=== PATIENT | male | born 1935 | race Caucasian/White ===

== ENCOUNTER → 2018-01-23 | Outpatient (CLI) | payer MEDICARE, OTHER ==
[2018-01-23 09:05] LABS: ANION GAP 5 mmol/L (7-16); BUN 11 mg/dL (7-18); CALCIUM 8.8 mg/dL (8.5-10.1); CHLORIDE 105 mmol/L (98-107); CHOLESTEROL 108 mg/dL (<200); CO2 31 mmol/L (21-32); CREATININE 1.1 mg/dL (0.6-1.3); GLUCOSE 93 mg/dL (70-99); HDL CHOLESTEROL 52 mg/dL (>40); LDL CHOLESTEROL 42 mg/dL (<100); SGOT 22 U/L (15-37); SGPT 32 U/L (30-65); SODIUM 141 mmol/L (136-145); TC:HDL 2.1 Ratio (Not establshd); TRIGLYCERIDE 70 mg/dL (<150); VLDL 14 mg/dL (<40)
[2018-01-23 09:07] LABS: SERUM ASSESSMENT Clear
== END ==
LOC: M.LAB 08:23
PROVIDERS: Internal Medicine Cardiovascular Disease
DX: Z95.5 Presence of coronary angioplasty implant and graft (principal); I10 Essential (primary) hypertension; I25.10 Atherosclerotic heart disease of native coronary artery without angina pectoris; E78.5 Hyperlipidemia, unspecified

== ENCOUNTER → 2019-01-22 | Outpatient (CLI) | payer MEDICARE, BC | LOC: M.ULTRA 09:58 | DX: M79.89 Other specified soft tissue disorders (principal) ==

== ENCOUNTER → 2020-02-05 | Outpatient (CLI) | payer MEDICARE, BC ==
--- NOTE | 2020-02-05 18:08 | EXE ---
[place] [address] STRESS ECHOCARDIOGRAM Name: JOLENE RAMOS Room: [facility]#: [id number] Admission: 02/05/20 Attend Phys: Tyrell Weiss MD Discharge: Date of : 31 Date of Service: 02/05/20 1806 Report #: [id number] THIS REPORT FOR: cc: Tomi Yi Steve T. DO Liston, Michael J. MD [facility] ~ APPROVED REPORT Study performed: 02/05/2020 15:21:58 Exam: Dobutamine Stress Echo Indication: CAD Patient Location: Out-Patient Stress Nurse: Renae Jha RN Supervising Physician: Julio Vo MD Ht: 5 ft 7 in HR: 61 bpm BP: 161/76 mmHg Medical History Cardiac Risk Factors: Hyperlipidemia, HTN, FHX of CAD, Tobacco History (Former) Procedure The patient underwent a Pharmacological Stress Test using Dobutamine. Blood pressure, heart rate, and EKG were monitored. An Echocardiogram was performed by communications engineering technician in four stages in quad fashion. At peak stress, four selected images were obtained and placed side by side with resting images for comparison. Stress Test Details Stress Test: Pharmacological Stress Test using Dobutamine. HR Resting HR: 61 bpm Max Heart Rate (APMHR): 134 bpm Max HR Achieved: 119 bpm Target HR (85% APMHR): 113 bpm % of APMHR: 88 Recovery HR: 81 bpm HR response to stress: Normal HR response to stress BP Resting BP: 161/76 mmHg Max BP: 193/69 mmHg Recovery BP: 155/81 [place] [address] STRESS ECHOCARDIOGRAM Name: JOLENE RAMOS Room: [facility]#: [id number] Admission: 02/05/20 Attend Phys: Tyrell Weiss MD Discharge: Date of : 31 Date of Service: 02/05/20 1806 Report #: [id number] BP response to stress: Normal blood pressure response to stress. ECG Resting ECG: Sinus Rhythm Stress ECG: Sinus Tachycardia ST Change: None Arrhythmia: None Recovery ECG: Sinus Rhythm Recovery ST Change: None Recovery Arrhythmia: None Clinical Reason for Termination: Completed protocol The patient tolerated dobutamine infusion without significant cardiac symptoms. Stress ECG Conclusion The baseline 12-lead EKG show sinus rhythm without significant ST segment or T wave abnormality. EKGs obtained during and post dobutamine infusion show sinus rhythm and sinus tachycardia with no significant ST segment or T wave changes when compared to baseline. There were no stress-induced arrhythmias. Pre-Stress Echo The resting Echocardiogram showed normal left ventricular contractility with an estimated Ejection Fraction of about 55-60%. The resting echocardiogram demonstrated normal wall motion in all wall segments. Post-Stress Echo The stress Echocardiogram showed normal left ventricular contractility with an estimated Ejection Fraction of about >70%. Compared to rest, there were no stress-induced wall motion abnormalities. Normal augmentation of wall motion in all segments on post stress images. Clinical No clinical or ECG evidence for ischemia. Conclusion Clinical Response: Non-ischemic Stress ECG Response: Non-ischemic Stress Echo Images: [place] [address] STRESS ECHOCARDIOGRAM Name: REBEKAHJOLENE Room: [facility]#: [id number] Admission: 02/05/20 Attend Phys: Tyrell Weiss MD Discharge: Date of : 31 Date of Service: 02/05/201805 Report #: [id number] Other Information Study Quality: Good <ELECTRONICALLY SIGNED> By: Julio Vo MD, FACC 02/05/201805 05 05 Julio Vo MD, FACC /INF
== END ==
LOC: M.CRD 14:24
DX: I25.10 Atherosclerotic heart disease of native coronary artery without angina pectoris (principal)

== ENCOUNTER 2020-08-09 14:11 | Emergency (ER) | payer MEDICARE, BC ==
[~2020-08-09] VITALS: Ht 165.1 cm; Wt 69.8 kg
[2020-08-09] MEDS ORDERED: LISINOPRIL20 MG PO (14:26)
[2020-08-09] MEDS ORDERED: CARVEDILOL12.5 MG PO (14:26)
[2020-08-09] MEDS ORDERED: NORVASC 2.5 MG2.5 M1 PO (14:26)
[2020-08-09] MEDS ORDERED: FISH OIL 1,001000 M3 PO (14:27)
[2020-08-09] MEDS ORDERED: ASA81BEC PO (14:27)
[2020-08-09] MEDS ORDERED: ZOCOR 10 MG TAB10 MG PO (14:27)
[2020-08-09] MEDS ORDERED: MULTIVITAMINS1 EAC7 PO (14:28)
[2020-08-09 14:39] LABS: URINE BLOOD 3+ (Negative); URINE CLARITY CLOUDY; URINE COLOR RED; URINE GLUCOSE-RANDOM NEGATIVE (Negative); URINE KETONES NEGATIVE (Negative); URINE LEUKOCYTES NEGATIVE (Negative); URINE NITRITE NEGATIVE (Negative); URINE PROTEIN 1+ (Negative); URINE UROBILINOGEN 0.2 E.U./dl (0.2-1.0)
[2020-08-09 14:41] LABS: ICTOTEST (BILI CONFIRMATORY) Negative (Negative); URINE BILIRUBIN 1+ (Negative)
[2020-08-09 14:47] LABS: SQUAMOUS NONE SEEN /LPF (0-3); URINE RBC >20 Many /HPF (0-2); URINE WBC 0-5 Rare /HPF (0-5)
[2020-08-09 14:48] LABS: ABSOLUTE BASOPHILS 0.1 thou/uL (0.0-0.2); ABSOLUTE EOSINOPHILS 0.3 thou/uL (0.0-0.7); ABSOLUTE LYMPHOCYTES 1.2 thou/uL (0.8-5.3); ABSOLUTE MONOCYTES 0.6 thou/uL (0.0-1.2); ABSOLUTE NEUTROPHILS 4.1 thou/uL (1.6-8.1); BASOPHILS 1.3 %; EOSINOPHILS 4.3 %; HEMATOCRIT 46.3 % (42.0-52.0); HEMOGLOBIN 15.4 gm/dL (14.0-18.0); LYMPHOCYTES 18.9 %; MCH 30.2 pg (26.0-34.0); MCHC 33.3 g/dL (28.0-37.0); MCV 90.5 fL (80.0-100.0); MONOCYTES 10.4 %; MPV 7.3 fl. (7.2-11.1); NUCLEATED RBCS 0 /100WBC; PLATELET COUNT* 266 thou/uL (150-400); POLYS 65.1 %; RBC 5.11 mil/uL (4.50-6.00); RDW-CV 14.3 % (10.5-14.5); WBC 6.3 thou/uL (4.0-11.0)
[2020-08-09 14:48] LABS: CASTS None Seen /LPF (None Seen); CRYSTALS None Seen /LPF (None Seen); MUCUS None Seen strn/LPF (None Seen)
[2020-08-09 14:57] LABS: CALCIUM 8.8 mg/dL (8.5-10.1); CREATININE 1.1 mg/dL (0.6-1.3); POTASSIUM 3.5 mmol/L (3.5-5.1)
[2020-08-09 15:00] LABS: ALBUMIN 3.7 g/dL (3.4-5.0); TOTAL BILIRUBIN 0.5 mg/dL (<0.1-1.0); TOTAL PROTEIN 7.4 g/dL (6.4-8.2)
[2020-08-09] MEDS ORDERED: KEFLEX500 M1 PO (16:37)
[2020-08-09 17:04] VITALS: BP 146/72
== END 2020-08-09 17:04 | disposition home or self-care (01) ==
LOC: M.ERS 14:11
PROVIDERS: Nurse Practitioner Family
DX: R31.9 Hematuria, unspecified (principal); I10 Essential (primary) hypertension

== ENCOUNTER → 2021-03-31 | Outpatient (CLI) | payer MEDICARE, BC ==
[~2021-03-31] MED LIST: ASA81BEC PO; CARVEDILOL12.5 MG PO; FISH OIL 1,001000 M3 PO; KEFLEX500 M1 PO; LISINOPRIL20 MG PO; MULTIVITAMINS1 EAC7 PO; NORVASC 2.5 MG2.5 M1 PO; ZOCOR 10 MG TAB10 MG PO
[2021-03-31 16:10] LABS: CALCIUM 8.5 mg/dL (8.5-10.1); CREATININE 1.2 mg/dL (0.6-1.3); POTASSIUM 3.5 mmol/L (3.5-5.1)
== END ==
LOC: M.LAB 15:25
PROVIDERS: ATTEND Nurse Practitioner
DX: R60.9 Edema, unspecified (principal)